=== PATIENT | male | born 1940 | race Caucasian/White ===

== ENCOUNTER 2016-07-26 16:31 | Inpatient (IN) | payer MEDICARE ==
[~2016-07-26] VITALS: Ht 177.8 cm; Wt 91.0 kg
[2016-07-26 16:33] VITALS: O2SAT 95
[2016-07-26 16:34] VITALS: PULSE 71; RESP 18; TEMP 97.7; O2SAT 94
[2016-07-26] MEDS ORDERED: SODIUM CHLOR 0.9% 1000 ML INJ 1,000 ML IV ONE (16:40)
--- NOTE | 2016-07-26 16:40 | PD ---
HPI Chief Complaint: Neuro Symptoms/ Deficits Time Seen by Provider: 16:40 Travel History International Travel<30 days: No Contact w/Intl Traveler<30days: No Traveled to known affect area: No History of Present Illness HPI 76-year-old male was brought to the emergency room by his with history of right upper extremity weakness that started at 3:30 PM. The witnessed the weakness. She is confident about the time of onset. Patient does not have any other weakness except for the right upper extremity. Her past history of stroke. He is awake and answering questions appropriately. They are from [place] and here on vacation. Vital signs were stable otherwise. Blood glucose level bedside was 106. No history of headache or syncopal episodes. No history of trauma. [facility] Past Medical History Narrative Medical List of his past medical, surgical, social and family history was reviewed from the nursing note. Cardiovascular Problems: Yes (PAD, STEN BILAT GROIN, STENT L KIDNEY) Social History Tobacco Use: Yes Allergies-Medications (Allergen,Severity, Reaction): Coded Allergies: Penicillin (Verified Allergy, Unknown, 07/26/16) Comments List of his allergies reviewed from the nursing note. Reported Meds & Prescriptions Reported Meds & Active Scripts Active Reported Fiber Laxative (Calcium Polycarbophil) 625 Mg Tab 1,250 Mg PO DAILY PRN Flax Seed Oil 1000 mg (Flaxseed (Linseed)) 1 Cap Cap 1,000 Mg PO DAILY Zyrtec Allergy (Cetirizine HCl) 10 Mg Tab 10 Mg PO DAILY Multi Vitamin (Multiple Vitamin) 1 Tab Tab 1 Tab PO DAILY Coq-10 (Coenzyme Q10 (Ubidecarenone)) 100 Mg Cap 100 Mg PO DAILY Aspirin DR (Aspirin) 81 Mg Tabdr 81 Mg PO DAILY Tamsulosin (Tamsulosin HCl) 0.4 Mg Cap 0.8 Mg PO DAILY Isosorbide Mononitrate ER (Isosorbide Mononitrate) 60 Mg Tab 60 Mg PO DAILY Plavix (Clopidogrel Bisulfate) 75 Mg Tab 75 Mg PO DAILY Acebutolol (Acebutolol HCl) 400 Mg Cap 400 Mg PO DAILY Narrative Medication List of his home medications reviewed from the nursing note. Review of Systems Except as stated in HPI: all other systems reviewed are Neg Physical Exam Narrative GENERAL: Awake, alert, anxious SKIN: Warm and dry. HEAD: Atraumatic. Normocephalic. EYES: Pupils equal and round. No scleral icterus. No injection or drainage. ENT: No nasal bleeding or discharge. Mucous membranes pink and moist. NECK: Trachea midline. No JVD. CARDIOVASCULAR: Regular rate and rhythm. No murmur appreciated. RESPIRATORY: No accessory muscle use. Clear to auscultation. Breath sounds equal bilaterally. GASTROINTESTINAL: Abdomen soft, non-tender, nondistended. Hepatic and splenic margins not palpable. MUSCULOSKELETAL: No obvious deformities. No clubbing. No cyanosis. No edema. NEUROLOGICAL: Awake and alert. No obvious cranial nerve deficits. Motor grossly within normal limits. Normal speech. NIH stroke score of 5 due to significant right upper extremity flaccid weakness and mild sensory loss in the right upper extremity. PSYCHIATRIC: Appropriate mood and affect; insight and judgment normal. Data Data Last Documented VS Vital Signs Date Time Temp Pulse Resp B/P Pulse Ox O2 Delivery O2 Flow Rate FiO2 07/26/16 16:34 97.7 71 18 94 07/26/16 16:33 Room Air Orders Diet Npo (07/26/16 Dinner) Activity Bed Rest (07/26/16 ) I-Stat Creatinine (07/26/16 16:40) I-Stat Profile (07/26/16 16:40) Prothrombin Time / Inr (Pt) (07/26/16 16:40) Act Partial Throm Time (Ptt) (07/26/16 16:40) Complete Blood Count With Diff (07/26/16 16:40) Fibrinogen (07/26/16 16:40) Creatine Kinase (Cpk) (07/26/16 16:40) Troponin I (07/26/16 16:40) Ua Includes Microscopic (07/26/16 16:40) Drug Screen, Random Urine (07/26/16 16:40) Type And Screen (07/26/16 16:40) Ct Brain W/O Iv Contrast(Rout) (07/26/16 ) Consult Neurology (07/26/16 ) Blood Glucose (07/26/16 16:40) Ecg Monitoring (07/26/16 16:40) Neuro Checks Q2HX12,Q4H (07/26/16 16:40) Nursing Bedside Swallow Assess .ONCE (07/26/16 16:40) Iv Access Insert/Monitor (07/26/16 16:40) NPO (07/26/16 16:40) Oximetry (07/26/16 16:40) Oxygen Administration (07/26/16 16:40) Sodium Chlor 0.9% 1000 Ml Inj (Ns 1000 M (07/26/16 16:40) Resp Oxygen Donell C Titrat 1-4 L (07/26/16 16:40) Cath For Specimen (07/26/16 16:40) ^ Call Pharmacy (07/26/16 16:59) Nih Stroke Scale - Nihss .ONCE (07/26/16 16:59) Urinary Catheter Management RICARDO.Q8H (07/26/16 16:59) Urinary Catheter Insert/Apply (07/26/16 16:59) ^ Anticoagulant Alert (07/26/16 16:59) ^ Post Infusion Restrictions (07/26/16 16:59) ^ Medication Alert (07/26/16 16:59) Vital Signs (Adult) .As directed (07/26/16 16:59) ^ Notify Dr: Blood Pressure (07/26/16 16:59) ^ Medication Alert (07/26/16 16:59) Alteplase Bolus (Activase Bolus) (07/26/16 17:00) Alteplase Drip (Activase Drip) (07/26/16 17:00) Sodium Chloride 0.9% Inj (Ns Inj) (07/26/16 17:00) Misc Nursing Information (07/26/16 17:00) Resp Oxygen Donell C Titrat 1-4 L (07/26/16 ) Ct Brain W/O Iv Contrast(Rout) (07/27/16 ) Mri Brain W/O Contrast (07/26/16 ) Scd Bilateral/Knee High RICARDO.QSHIFT (07/26/16 17:00) Heel Former / Telemetry RICARDO.Q8H (07/26/16 17:00) Westergren Sedimentation Rate (07/26/16 17:00) Vitamin B12 (07/26/16 17:00) Thyroid Stimulating Hormone (07/26/16 17:00) Lipid Profile (07/26/16 17:00) Hemoglobin (Hgb) A1c (07/26/16 17:00) Mra Brain W/O Contrast (Cow) (07/26/16 ) Us Carotid Arteries Comp Bilat (07/26/16 ) Admit Order (Ed Use Only) (07/26/16 17:46) Labs Laboratory Tests Test 07/26/16 07/26/16 16:40 16:55 White Blood Count 7.8 TH/MM3 Red Blood Count 5.14 MIL/MM3 Hemoglobin 16.6 GM/DL Bedside Hemoglobin 16.3 G/DL Hematocrit 48.3 % Bedside Hematocrit 48.0 % Mean Corpuscular Volume 94.1 FL Mean Corpuscular Hemoglobin 32.3 PG Mean Corpuscular Hemoglobin 34.3 % Concent Red Cell Distribution Width 13.7 % Platelet Count 240 TH/MM3 Mean Platelet Volume 7.5 FL Neutrophils (%) (Auto) 49.5 % Lymphocytes (%) (Auto) 34.5 % Monocytes (%) (Auto) 8.5 % Eosinophils (%) (Auto) 6.7 % Basophils (%) (Auto) 0.8 % Neutrophils # (Auto) 3.9 TH/MM3 Lymphocytes # (Auto) 2.7 TH/MM3 Monocytes # (Auto) 0.7 TH/MM3 Eosinophils # (Auto) 0.5 TH/MM3 Basophils # (Auto) 0.1 TH/MM3 CBC Comment DIFF FINAL Differential Comment Erythrocyte Sedimentation Rate 2 mm/hr Prothrombin Time 11.1 SEC Prothromb Time International 1.0 RATIO Ratio Activated Partial 25.2 SEC Thromboplast Time Fibrinogen 237 mg/dL Bedside Sodium 144 MMOL/L Bedside Potassium 4.2 MMOL/L Bedside Chloride 105 MMOL/L Bedside Blood Urea Nitrogen 20 MG/DL Bedside Creatinine 1.5 MG/DL Bedside Glucose 109 MG/DL Total Creatine Kinase 132 U/L Troponin I LESS THAN 0.02 NG/ML Hemoglobin A1c 5.8 % Triglycerides Level 205 MG/DL Cholesterol Level 167 MG/DL LDL Cholesterol 89 MG/DL HDL Cholesterol 37.0 MG/DL Cholesterol/HDL Ratio 4.51 RATIO Vitamin B12 Level 705 PG/ML Thyroid Stimulating Hormone 1.240 uIU/ML 3rd Gen Blood Type A POSITIVE Antibody Screen NEGATIVE Blood Bank Comment [facility] Medical Decision Making Medical Screen Exam Complete: Yes Emergency Medical Condition: Yes Medical Record Reviewed: Yes Differential Diagnosis Embolic CVA, hemorrhagic CVA Narrative Course 6 PM stroke alert was called overhead based on the findings. I spoke with the neurologist Dr. Diaz who after listening to the presentation wanted the patient to give TPA. The radiologist call back after the CAT scan to let me know that it was negative. Patient was reassessed quickly and at this point he was moving his upper extremities slightly more and the NIH stroke score was 3 based on that. I let Dr. Diaz know about this and also the fact that patient is on Plavix. He wanted the TPA to be given still. I spoke with the patient and his and answered all the questions regarding the TPA administration along with the risks and the benefits to the best of my ability. They gave consent for TPA. The order was immediately put in. He was here to assess the patient as well. Patient remained stable during the TPA. 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 Critical Care Narrative Aggregate critical care time was 45 minutes. Time to perform other separately billable procedures was not included in the critical care time. My time did not include minutes spent treating any other patients simultaneously or on activities that did not directly contribute to the patient's treatment. The services I provided to this patient were to treat and/or prevent clinically significant deterioration that could result in: Stroke alert, TPA administration I provided critical care services requiring my management, as noted below: Chart data review, documentation time, medication orders and management, vital sign assessments/reviewing monitor data, ordering and reviewing lab tests, ordering and interpreting/reviewing x-rays and diagnostic studies, care of the patient and discussion of the patient with the admitting physicians. Procedures EKG Prior to Arrival: No Physician Communication Physician Communication Dr. Rani Tellez Diagnosis Primary Impression: Acute CVA (cerebrovascular accident) Admitting Information Admitting Physician Requests: Admit Kristyn Castillo MD Jul 26, 2016 16:40
[2016-07-26] MEDS ORDERED: ACEB400C PO (16:54)
[2016-07-26] MEDS ORDERED: PLAV75TA29 PO (16:54)
[2016-07-26] MEDS ORDERED: TAMS0.4C4 PO (16:54)
[2016-07-26] MEDS ORDERED: ISOS60TA PO (16:54)
[2016-07-26 16:57] LABS: I-STAT POTASSIUM 4.2 MMOL/L (3.5-4.9); I-STAT SODIUM 144 MMOL/L (138-146)
[2016-07-26] MEDS ORDERED: MISCELLANEOUS NURSING INFORMATION XX PRN (17:00)
[2016-07-26] MEDS ORDERED: ALTEPLASE DRIP 78.5 MG in SYRINGE/BAG 1 EA IV ONE (17:00)
[2016-07-26] MEDS ORDERED: ALTEPLASE BOLUS 9 MG/9 ML SYR IV ONE (17:00)
[2016-07-26] MEDS ORDERED: SODIUM CHLORIDE 0.9% 50 ML BAG IVF ONE (17:00)
--- NOTE | 2016-07-26 17:00 | PD.CONS ---
History of Present Illness Service Neurology Consult Requested By er Reason for Consult stroke alert Primary Care Physician History of Present Illness 76 y/o m presents as a stroke alert. sudden rt arm monoplegia. unable to raise arm. onset about an hour prior to arrival. no valle, no trauma. no face/leg involvement. smokes 5 cig/day. no hx of tia/stroke. ct brain no ich. glucose 107. case d/w er md. iv tpa offered. apparently it took some time for pt/spouse to make a decision but medication given in less than an hour. he understands the risk of 6% bleed. he is from [place] and gets his care there. has renal and le stents, for which he takes plavix. 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 follows, no aphasia, follows, eomi, vff, mild reduced rt nlf, rt ue 2/5 with dystaxia, leg 5/5, sensory sym, msr sym, no clonus, planter flexor, nihss 4 Review/Management Diagnosis/Plan: (1) Acute lacunar stroke Plan: pure motor lacunar infarct resulting in rt ue monoplegia localization: left subcortical, left ventral midbrain/lindsay r/o carotid dz risk factors: tob use recs iv tpa given isc admission bp <180/100 stroke w/u no blood thinners tobacco cessation d/w pt scd's (2) HTN (hypertension) (3) Renal insufficiency Plan: has a stent (4) Tobacco consumption Plan: cessation encouraged Problem Qualifiers (1) HTN (hypertension): Qualified Code: I10 - Essential hypertension Chinmay Diaz MD Jul 26, 2016 17:00
[2016-07-26 17:01] LABS: AUTOMATED NEUTROPHIL # 3.9 TH/MM3 (1.8-7.7); BASOPHIL # 0.1 TH/MM3 (0-0.2); BASOPHIL % 0.8 % (0.0-2.0); EOSINOPHIL # 0.5 TH/MM3 (0-0.4); EOSINOPHIL % 6.7 % (0.0-4.0); HEMATOCRIT 48.3 % (39.0-51.0); HEMO FLAGS DIFF FINAL; LYMPH % 34.5 % (9.0-44.0); LYMPHOCYTE # 2.7 TH/MM3 (1.0-4.8); MEAN CELL VOLUME 94.1 FL (80.0-100.0); MEAN CORPUSCULAR HEMOGLOBIN 32.3 PG (27.0-34.0); MEAN CORPUSCULAR HGB CONC 34.3 % (32.0-36.0); MONO % 8.5 % (0.0-8.0); NEUT % 49.5 % (16.0-70.0); PLATELET COUNT 240 TH/MM3 (150-450); RED BLOOD COUNT 5.14 MIL/MM3 (4.50-5.90); RED CELL DISTRIBUTION WIDTH 13.7 % (11.6-17.2); WHITE BLOOD COUNT 7.8 TH/MM3 (4.0-11.0)
[2016-07-26] MEDS ORDERED: FLAX10002 PO (17:03)
[2016-07-26] MEDS ORDERED: ASPI81TA5 PO (17:03)
[2016-07-26] MEDS ORDERED: MULT-135 PO (17:03)
[2016-07-26] MEDS ORDERED: FIBE625T3 PO (17:03)
[2016-07-26] MEDS ORDERED: COQ-100C2 PO (17:03)
[2016-07-26] MEDS ORDERED: ZYRT10TA PO (17:03)
--- NOTE | 2016-07-26 17:03 | RADRPT ---
EXAM DATE/TIME: 07/26/2016 16:43 [facility] COMPARISON: No previous studies available for comparison. INDICATIONS : Right arm weakness. RADIATION DOSE: 46.86 CTDIvol (mGy) This report was called by Dr. Monet to Dr. Castillo at 1655 MEDICAL HISTORY : Unable to obtain SURGICAL HISTORY : unable to obtain ENCOUNTER: Initial ACUITY: 1 day PAIN SCALE: 0/10 LOCATION: cranial TECHNIQUE: Multiple contiguous axial images were obtained of the head. Using automated exposure control and adj ustment of the mA and/or kV according to patient size, radiation dose was kept as low as reasonably a chievable to obtain optimal diagnostic quality images. FINDINGS: CEREBRUM: The ventricles are normal for age. No evidence of midline shift, mass lesion, hemorrhage or acute in farction. No extra-axial fluid collections are seen. POSTERIOR FOSSA: The cerebellum and brainstem are intact. The 4th ventricle is midline. The cerebellopontine angle i s unremarkable. EXTRACRANIAL: The visualized portion of the orbits is intact. Mucoperiosteal thickening in the left ethmoid air tera ls and hypoplastic right maxillary antra. SKULL: The calvaria is intact. No evidence of skull fracture. CONCLUSION: 1. Mild, chronic sinusitis. 2. Otherwise negative. Nelson Castro MD on July 26, 2016 at 16:57 Board Certified Radiologist. This report was verified electronically.
[2016-07-26 17:15] LABS: APTT (PATIENT) 25.2 SEC (24.3-30.1); PROTHROMBIN TIME - PATIENT 11.1 SEC (9.8-11.6)
[2016-07-26 17:23] LABS: CREATINE KINASE 132 U/L (39-308)
--- NOTE | 2016-07-26 17:46 | HHI.HP ---
[facility] Service Critical Care Medicine Primary Care Physician Unknown Admission Diagnosis CVA Diagnosis: (1) Acute lacunar stroke Diagnosis: Principal (2) Renal insufficiency Diagnosis: Principal (3) HTN (hypertension) Diagnosis: Principal (4) Elevated cholesterol with high triglycerides Diagnosis: Principal (5) Peripheral arterial disease Diagnosis: Principal (6) History of squamous cell carcinoma Diagnosis: Principal (7) BPH (benign prostatic hyperplasia) Diagnosis: Principal Chief Complaint: Right arm weakness Travel History International Travel<30 Days: No Contact w/Intl Traveler <30 Da: No Traveled to Known Affected Are: No History of Present Illness 76 year old male. Date of admission 07/26/2016. Past medical history includes hypertension, squamous cell carcinoma, BPH and peripheral arterial disease. He is on aspirin and Plavix. He presented to the [place] ED as a stroke alert with acute onset of right arm weakness approximately one hour to presentation. Started stroke alert was called. Stat CT the brain revealed sinus is otherwise unremarkable. NIH score was 4 for right motor arm weakness. Was evaluated by Dr. Diaz/neurology for his. Right upper extremity motor arm monoplegia. Recommend alteplase indeed received 8.7 mg bolus followed by completion. MRI/MRA brain along with carotid Dopplers pending. Patient's currently lying flat in bed Review of Systems Constitutional: DENIES: Weight gain, Weight loss Endocrine: DENIES: Polydipsia, Polyuria Eyes: DENIES: Blurred vision Ears, nose, mouth, throat: DENIES: Tinnitus Respiratory: DENIES: Apneas Cardiovascular: DENIES: Chest pain Gastrointestinal: DENIES: Abdominal pain Genitourinary: COMPLAINS OF: Urgency, DENIES: Hematuria, Dysuria Musculoskeletal: DENIES: Joint pain, Back pain, Neck pain Integumentary: DENIES: Abnormal pigmentation Hematologic/lymphatic: DENIES: Bruising Immunologic/allergic: DENIES: Eczema Neurologic: COMPLAINS OF: Localized weakness, DENIES: Paresthesias Psychiatric: DENIES: Anxiety, Confusion, Mood changes Past Family Social History Allergies: Coded Allergies: Penicillin (Verified Allergy, Unknown, 07/26/16) Past Medical History Skin cancer Hypertension BPH PAD Past Surgical History Bilateral iliac stents Left renal stent Cataract L5 L6 with X-Stop Reported Medications Acebutolol 400 mg by mouth daily Plavix 75 mg by mouth daily Imdur 60 mg by mouth daily Flomax 0.4 mg by mouth daily Aspirin 81 mg by mouth daily Coenzyme Q 100 mg by mouth daily B12 1 tablet daily Multivitamin 1 tablet daily Active Ordered Medications Reviewed in EMR Family History Sr. with CVA 13 years ago Social History Smokes 4-5 cigarettes "forever". No alcohol use. No IV drug use. Physical Exam Vital Signs Vital Signs Date Time Temp Pulse Resp B/P Pulse Ox O2 Delivery O2 Flow Rate FiO2 07/26/16 16:34 97.7 71 18 94 07/26/16 16:33 95 Room Air 07/26/16 16:33 95 Room Air Physical Exam GENERAL: [age] male, critically ill currently resting in bed in no acute distress SKIN: Warm and dry. HEAD: Atraumatic. Normocephalic. EYES: Pupils equal and round around 3 mm bilaterally and reactive. No scleral icterus. No injection or drainage. ENT: No nasal bleeding or discharge. Mucous membranes pink and moist. NECK: Trachea midline. No JVD. CARDIOVASCULAR: Regular rate and rhythm. S1, S2. No S4. Without murmur RESPIRATORY: Clear to auscultation. Breath sounds equal bilaterally. GASTROINTESTINAL: Abdomen soft, non-tender, nondistended. Hypoactive bowel sounds are appreciated MUSCULOSKELETAL: Extremities without significant peripheral edema. No obvious deformities. NEUROLOGICAL: Awake and alert. No obvious cranial nerve deficits. Motor arm is 4/5. Positive pronator drift. Sensation intact. Remainder motor is 5/5.. No sensation to light touch and pinprick. Normal speech. DTRs equal and symmetric. PSYCHIATRIC: Appropriate mood and affect; insight and judgment normal. Laboratory Laboratory Tests Test 07/26/16 07/26/16 16:40 16:55 White Blood Count 7.8 Red Blood Count 5.14 Hemoglobin 16.6 Bedside Hemoglobin 16.3 Hematocrit 48.3 Bedside Hematocrit 48.0 Mean Corpuscular Volume 94.1 Mean Corpuscular Hemoglobin 32.3 Mean Corpuscular Hemoglobin 34.3 Concent Red Cell Distribution Width 13.7 Platelet Count 240 Mean Platelet Volume 7.5 Neutrophils (%) (Auto) 49.5 Lymphocytes (%) (Auto) 34.5 Monocytes (%) (Auto) 8.5 Eosinophils (%) (Auto) 6.7 Basophils (%) (Auto) 0.8 Neutrophils # (Auto) 3.9 Lymphocytes # (Auto) 2.7 Monocytes # (Auto) 0.7 Eosinophils # (Auto) 0.5 Basophils # (Auto) 0.1 CBC Comment DIFF FINAL Differential Comment Prothrombin Time 11.1 Prothromb Time International 1.0 Ratio Activated Partial 25.2 Thromboplast Time Fibrinogen 237 Bedside Sodium 144 Bedside Potassium 4.2 Bedside Chloride 105 Bedside Blood Urea Nitrogen 20 Bedside Creatinine 1.5 Bedside Glucose 109 Total Creatine Kinase 132 Troponin I LESS THAN 0.02 Triglycerides Level 205 Cholesterol Level 167 Blood Type A POSITIVE Antibody Screen NEGATIVE Blood Bank Comment Result Diagram: 07/26/16 1640 Imaging Last Impressions Head CT 07/26/16 0000 Signed Impressions: Service Date/Time: Tuesday, July 26, 2016 16:43 - CONCLUSION: 1. Mild, chronic sinusitis. 2. Otherwise negative. Nelson Castro MD Assessment and Plan Assessment and Plan Neuro/Psych: Right upper extremity. Motor monoplegia - rule out left midbrain/lindsay/ subcortical lacunar infarct Evaluated by neurology/Dr. Diaz Recommended alteplase currently receiving fusion after initial bolus of 8.7 mg Lay flat had Neuro checks per protocol ICU admission CT head - sinusitis otherwise no acute findings MRI/MRA/carotid Dopplers pending CT head 24 hours post alteplase infusion CV: History of hypertension Elevated triglycerides PAD - history of bilateral iliac stents Holding acebutolol 400 mg by mouth daily and Imdur 60 mill grams by mouth daily for hypertension. Goal keep systolic blood pressure less than 180, diastolic blood pressure less than 105 with when necessary labetalol/hydralazine and Nitropaste 2-D echocardiogram ordered At home on aspirin 81 mg daily, Plavix 75 mill grams for PAD this also has been held Start lipid-lowering agent in a.m. Resp: History of tobaccoism Nasal cannula to maintain saturations greater than equal to 92% Incentive spirometry while awake As needed albuterol therapy every 2 hours Tobacco cessation encouraged. Indication left. GI: Patient is currently nothing by mouth Protonix for GI prophylaxis Colace/as needed Senokot for bowel regimen : BPH Currently holding Flomax 4 mg by mouth daily. Endo: Sliding-scale insulin if indicated to maintain euglycemia/6 hours Check TSH and hemoglobin A1c Renal: Chronic kidney disease stage II to 3 History of left renal stent Monitor urine output closely Currently normal saline 84 cc an hour Accurate I's and O's Heme: CBC within normal limits. ID: Monitor for infection FEN: Replace electrolytes as clinically indicated MSK: PT/OT evaluate and treat Access - Utilize peripheral IV. Central line if indicated Prophylaxis - GI - Protonix - DVT -SCD/holding pharmacological prophylaxis 24 hours after alteplase infusion Critical Care: The total critical care time was 55 minutes. Time to perform other separately billable procedures was not included in the critical care time. Code Status Full code Discussed Condition With Dr. Castillo/ED physician. Patient and . Care plan discussed and all questions answered. Problem Qualifiers (1) HTN (hypertension): Qualified Code: I10 - Essential hypertension (2) BPH (benign prostatic hyperplasia): Qualified Code: N40.0 - Benign prostatic hyperplasia, presence of lower urinary tract symptoms unspecified, unspecified morphology Jim Saravia MD Jul 26, 2016 17:46
[2016-07-26 17:57] VITALS: O2SAT 96
[2016-07-26 18:02] LABS: LDL CHOLESTEROL 89 MG/DL (0-99)
[2016-07-26] MEDS ORDERED: MISCELLANEOUS NURSING INFORMATION XX SCH (18:15)
[2016-07-26] MEDS ORDERED: SODIUM CHLORIDE 0.9% FLUSH 10 ML FLUSH IV FLUSH PRN (18:15)
[2016-07-26] MEDS ORDERED: NITROGLYCERIN 2% OINT 1 GM PACKET TOPICAL PRN (18:15)
[2016-07-26] MEDS ORDERED: CHLORHEXIDINE GLUCONATE 2 % 1 PACK (2 CLOTHS) TOP PRN (18:15)
[2016-07-26] MEDS ORDERED: SENNOSIDES 8.6 MG TAB PO PRN (18:15)
[2016-07-26] MEDS ORDERED: MORPHINE SULFATE 4 MG/ML INJ IV PRN (18:15)
[2016-07-26] MEDS ORDERED: RESP: ALBUTEROL 2.5 MG/3 ML NEB (PRN) INH (18:15)
[2016-07-26] MEDS ORDERED: ONDANSETRON HCL 4 MG/2 ML VIAL IV PRN (18:15)
[2016-07-26] MEDS ORDERED: ACETAMINOPHEN 325 MG TAB PO PRN (18:15)
[2016-07-26] MEDS ORDERED: LABETALOL HCL 100 MG/20 ML VIAL IV PUSH PRN (18:15)
[2016-07-26 18:43] LABS: BACTERIA, URINE RARE /hpf; BLOOD, URINE NEG (NEG); CALCIUM OXALATE CRYSTALS,URINE OCC /hpf; GLUCOSE,URINE NEG (NEG); KETONE, URINE TRACE mg/dL (NEG); MUCUS URINE FEW /lpf (OCC); NITRITE,URINE NEG (NEG); URINE COLOR YELLOW (YELLW/STRAW)
[2016-07-26] MEDS: SODIUM CHLOR 0.9% 1000 ML INJ 1,000 ML IV SCH (18:59)
--- NOTE | 2016-07-26 20:10 | RADRPT ---
EXAM DATE/TIME: 07/26/2016 19:18 [facility] COMPARISON: No previous studies available for comparison. INDICATIONS : Right sided weakness. CVA. MEDICAL HISTORY : Hypertension. SURGICAL HISTORY : Stents, bilat legs and right kidney. ENCOUNTER: Subsequent ACUITY: 1 day PAIN SCORE: 0/10 LOCATION: head. Please note a normal MRA of the brain does not entirely exclude the possibility of a small aneurysm, nor the possibility of distal intracranial vessel disease. TECHNIQUE: 3D time of flight MRA was performed. Source images, multiplanar STS MIP, and 3D volume MIP reconstru ctions were reviewed. FINDINGS: There is excellent visualization of the major intracranial arteries out to the second-order branch ve ssels. There is no evidence for aneurysm, vessel truncation or stenosis, and no evidence for vascula r malformation. CONCLUSION: No acute disease. Carlos Lebron MD on July 26, 2016 at 20:08 Board Certified Radiologist. This report was verified electronically.
--- NOTE | 2016-07-26 20:13 | RADRPT ---
EXAM DATE/TIME: 07/26/2016 19:18 [facility] COMPARISON: No previous studies available for comparison. INDICATIONS : Right-sided weakness. CVA. MEDICAL HISTORY : Hypertension. SURGICAL HISTORY : Stents, bilateral legs and right kidney. ENCOUNTER: Subsequent ACUITY: 1 day PAIN SCORE: 0/10 LOCATION: Head. TECHNIQUE: Multiplanar, multisequence MRI of the brain was performed without contrast. FINDINGS: There is evidence of hyperintensity involving the left occipital and posteroparietal cortex on the di ffusion-weighted images indicating acute infarct in these locations. Mild cerebral atrophy is noted. There is no acute hemorrhage, midline shift or extra-axial fluid collections. Mild mucosal thicken ing is noted involving the right maxillary sinus. Left ethmoid air cell mucosal thickening is also noted. CONCLUSION: 1. Focal signal abnormality involving the left occipital and posteroparietal cortex on the diffusion -weighted images indicating acute infarcts. 2. Mild cerebral atrophy. 3. No acute hemorrhage, midline shift or extra-axial fluid collections. 4. Mild mucosal thickening involving the right maxillary sinus and left ethmoid air cells. Carols Lebron MD on July 26, 2016 at 20:04 Board Certified Radiologist. This report was verified electronically.
[2016-07-26] MEDS: SODIUM CHLORIDE 0.9% FLUSH 10 ML FLUSH IV FLUSH SCH (21:00)
[2016-07-26] MEDS: DOCUSATE SODIUM 100 MG CAP PO SCH (21:00)
[2016-07-26 22:00] VITALS: PULSE 60; PULSE 65
[2016-07-26 22:35] LABS: AMPHETAMINE, URINE NEG (NEG); BARBITURATES, URINE NEG (NEG); COCAINE, URINE NEG (NEG)
--- NOTE | 2016-07-26 22:37 | RADRPT ---
EXAM DATE/TIME: 07/26/2016 21:00 [facility] COMPARISON: No previous studies available for comparison. INDICATIONS : Dissection. MEDICAL HISTORY : Weakness. Peripheral artery disease. SURGICAL HISTORY : Left kidney stent. Bilateral groin stents. ENCOUNTER: Initial ACUITY: 1 day PAIN SCORE: 3/10 LOCATION: Bilateral neck PEAK SYSTOLIC VELOCITIES (cm/sec): ICA/CCA RATIO: Right: 1.7 Left: 1.7 ICA: Right: 115 Left: 116 CCA: Right: 69 Left: 70 ECA: Right: 122 Left: 234 VERTEBRAL: Right: 43 antegrade Left: 70 antegrade Elevated flow velocities and ICA/CCA ratios have been found to correlate with increased degrees of vessel stenosis, calculated as percentage of diameter relative to a normal segment of distal ICA/CCA FINDINGS: RIGHT CAROTID: No significant stenosis is visualized. The waveforms are within normal limits. Calcified atheroscler otic plaque is noted within the distal common carotid, carotid bulb and proximal internal carotid art nicola. LEFT CAROTID: No significant stenosis is visualized. The waveforms are within normal limits. Calcified atheroscler otic plaque is noted within the distal common carotid, carotid bulb and proximal internal carotid art nicola. Probable severe stenosis involving the left external carotid artery. VERTEBRAL ARTERIES: Antegrade flow is seen in both vertebral arteries. MISCELLANEOUS: None. CONCLUSION: No hemodynamically significant stenosis within the internal carotid arteries. Probabl e severe stenosis involving the left external carotid artery (greater than 70%). Carlos Lebron MD on July 26, 2016 at 22:34 Board Certified Radiologist. This report was verified electronically.
[2016-07-26 23:45] VITALS: O2SAT 93
[2016-07-27] VITALS (10 sets, daily range): BP systolic 116–179; BP diastolic 56–85; PULSE 60–74; RESP 15–22; TEMP 98.7–99.1; O2SAT 92–95
[2016-07-27] MEDS: CHLORHEXIDINE GLUCONATE 2 % 1 PACK (2 CLOTHS) TOP SCH (04:00)
[2016-07-27 04:22] LABS: AUTOMATED NEUTROPHIL # 7.5 TH/MM3 (1.8-7.7); BASOPHIL # 0.1 TH/MM3 (0-0.2); BASOPHIL % 0.8 % (0.0-2.0); EOSINOPHIL # 0.6 TH/MM3 (0-0.4); EOSINOPHIL % 4.8 % (0.0-4.0); HEMATOCRIT 45.6 % (39.0-51.0); HEMO FLAGS DIFF FINAL; LYMPH % 24.5 % (9.0-44.0); MEAN CELL VOLUME 94.7 FL (80.0-100.0); MEAN CORPUSCULAR HEMOGLOBIN 31.3 PG (27.0-34.0); MONO % 8.4 % (0.0-8.0); NEUT % 61.5 % (16.0-70.0); PLATELET COUNT 209 TH/MM3 (150-450); RED BLOOD COUNT 4.81 MIL/MM3 (4.50-5.90); RED CELL DISTRIBUTION WIDTH 13.6 % (11.6-17.2); WHITE BLOOD COUNT 12.3 TH/MM3 (4.0-11.0)
[2016-07-27 04:47] LABS: APTT (PATIENT) 26.1 SEC (24.3-30.1); BICARBONATE 25.4 MEQ/L (21.0-32.0); POTASSIUM 3.8 MEQ/L (3.5-5.1)
[2016-07-27] MEDS: hydrALAZINE HCL 20 MG/ML VIAL IV PUSH PRN ×2 (05:45→09:17)
[2016-07-27] MEDS ORDERED: SODIUM CHLORIDE 0.65% NASAL SPRAY 45 ML BTL EACH NARE PRN (07:30)
--- NOTE | 2016-07-27 07:34 | HHI.CCPN ---
Subjective Remarks/Hospital Course 76 year old male. Date of admission 07/26/2016. Past medical history includes hypertension, squamous cell carcinoma, BPH and peripheral arterial disease. He is on aspirin and Plavix. He presented to the [place] ED as a stroke alert with acute onset of right arm weakness approximately one hour to presentation. Started stroke alert was called. Stat CT the brain revealed sinus is otherwise unremarkable. NIH score was 4 for right motor arm weakness. Was evaluated by Dr. Diaz/neurology for his right upper extremity motor arm monoplegia. Recommend alteplase indeed received 8.7 mg bolus followed by completion. MRI/MRA brain along with carotid Dopplers pending. Patient's currently lying flat in bed SUBJECTIVE: 07/27: Afebrile. Patient currently sitting up in bed short of breath. He is normally on CPAP at night but does not tolerate our device/mask. He's also complaining of nasal congestion states "I can't breathe through my nose". MRI revealed left occipital/posterior parietal complex acute lacunar infarct. is bringing his home CPAP right now. Objective Vital Signs Date Time Temp Pulse Resp B/P Pulse Ox O2 Delivery O2 Flow Rate FiO2 07/26/16 23:45 93 4.00 36 07/26/16 22:00 60 07/26/16 20:00 Bi-Pap 07/26/16 16:34 97.7 18 Intake and Output 07/26/16 07/26/16 07/27/16 08:00 16:00 00:00 Intake Total 263 ml Output Total 400 ml Balance -137 ml Result Diagram: 07/27/16 0344 07/27/16 0344 Imaging Last Impressions Head Magnetic Resonance Angiography 07/26/16 0000 Signed Impressions: Service Date/Time: Tuesday, July 26, 2016 19:18 - CONCLUSION: No acute disease. Carlos Lebron MD Head CT 07/26/16 0000 Signed Impressions: Service Date/Time: Tuesday, July 26, 2016 16:43 - CONCLUSION: 1. Mild, chronic sinusitis. 2. Otherwise negative. Nelson Castro MD Carotid Artery Ultrasound 07/26/16 0000 Signed Impressions: Service Date/Time: Tuesday, July 26, 2016 21:00 - CONCLUSION: No hemodynamically significant stenosis within the internal carotid arteries. Probable severe stenosis involving the left external carotid artery (greater than 70%%). Carlos Lebron MD Brain MRI 07/26/16 0000 Signed Impressions: Service Date/Time: Tuesday, July 26, 2016 19:18 - CONCLUSION: 1. Focal signal abnormality involving the left occipital and posteroparietal cortex on the diffusion-weighted images indicating acute infarcts. 2. Mild cerebral atrophy. 3. No acute hemorrhage, midline shift or extra-axial fluid collections. 4. Mild mucosal thickening involving the right maxillary sinus and left ethmoid air cells. Carlos Lebron MD Objective Remarks GENERAL: [age] male, critically ill currently resting in bed with head elevated in mild respiratory distress SKIN: Warm and dry. No rash HEAD: Atraumatic. Normocephalic. EYES: Pupils equal and round around 3 mm bilaterally and reactive. No scleral icterus. No injection or drainage. ENT: No nasal bleeding or discharge. Mucous membranes pink and moist. NECK: Trachea midline. No JVD. CARDIOVASCULAR: Regular rate and rhythm. S1, S2. No S4. Without murmur RESPIRATORY: Clear to auscultation. Breath sounds equal bilaterally. GASTROINTESTINAL: Abdomen soft, non-tender, nondistended. Hypoactive bowel sounds are appreciated MUSCULOSKELETAL: Extremities without significant peripheral edema. No obvious deformities. NEUROLOGICAL: Awake and alert. No obvious cranial nerve deficits. Motor arm is 5/5 bilaterally. Motor leg is 5/5 bilaterally. No sensation to light touch and pinprick. Normal speech. DTRs equal and symmetric. PSYCHIATRIC: Appropriate mood and affect; insight and judgment normal. Urinary Catheter: Yes Assessment to: Continue Hendrix insert reason: Prolonged Immobilization Vascular Central Line Catheter: No Assessment to: Continue A/P Assessment and Plan Neuro/Psych: Acute left occipital/posterior parietal complex lacunar CVA Right upper extremity. Motor monoplegia -/resolved Allergic rhinitis Right Maxillary/left ethmoid sinusitis Evaluated by neurology/Dr. Diaz Recommended alteplase currently receiving fusion after initial bolus of 8.7 mg followed by 78.3 mg over one hour Lay flat had Neuro checks per protocol ICU admission CT head - sinusitis otherwise no acute findings MRI brain revealed left occipital/posterior parietal complex occurring infarct. MRA brain negative. Carotid ultrasound revealed greater than 70% left external carotid stenosis CT head 24 hours post alteplase infusion Given Zyrtec/Flonase and [place] spray nasal spray for rhinitis/sinusitis CV: History of hypertension Elevated triglycerides Low HDL PAD - history of bilateral iliac stents Left external carotid stenosis 70% Holding acebutolol 400 mg by mouth daily and Imdur 60 mill grams by mouth daily for hypertension. Goal keep systolic blood pressure less than 180, diastolic blood pressure less than 105 with when necessary labetalol/hydralazine and Nitropaste 2-D echocardiogram ordered. Results pending At home on aspirin 81 mg daily, Plavix 75 mill grams for PAD this also has been held Start lipid-lowering agent in a.m. Outpatient follow-up for external carotid stenosis Resp: History of tobaccoism FLAVIA Nasal cannula to maintain saturations greater than equal to 92% Incentive spirometry while awake As needed albuterol therapy every 2 hours Tobacco cessation encouraged. Indication left. On CPAP at night external pressure 6 cm H2O. GI: Start on health healthy diet Protonix for GI prophylaxis Colace/as needed Senokot for bowel regimen : BPH Currently holding Flomax 0.4 mg by mouth daily. Resume clinically indicated Endo: Sliding-scale insulin if indicated to maintain euglycemia/6 hours Check TSH and hemoglobin A1c Renal: Chronic kidney disease stage II to 3 History of left renal stent Monitor urine output closely Currently normal saline 70 cc an hour has been discontinued Accurate I's and O's Heme: Leukocytosis - likely stress Status post alteplase 87 milligrams total CBC will be repeated in AM. Monitor trends. No indication for transfusion of blood proximal at this time. ID: Monitor for infection FEN: Replace electrolytes as clinically indicated MSK: PT/OT evaluate and treat Access - Utilize peripheral IV. Central line if indicated Prophylaxis - GI - Protonix - DVT -SCD/holding pharmacological prophylaxis 24 hours after alteplase infusion Critical Care: The total critical care time was 35 minutes. Time to perform other separately billable procedures was not included in the critical care time. Jim Saravia MD Jul 27, 2016 07:34
[2016-07-27] MEDS: SODIUM CHLOR 0.9% 1000 ML INJ 1,000 ML IV SCH ×2 (07:55→16:41)
[2016-07-27] MEDS: PANTOPRAZOLE SODIUM 40 MG VIAL IV SCH (08:14)
[2016-07-27] MEDS: SODIUM CHLORIDE 0.9% FLUSH 10 ML FLUSH IV FLUSH SCH ×2 (08:14→21:00)
[2016-07-27] MEDS: TAMSULOSIN HCL 0.4 MG CAP PO SCH (08:15)
[2016-07-27] MEDS: MULTIVITAMIN TAB PO SCH (08:15)
[2016-07-27] MEDS: DOCUSATE SODIUM 100 MG CAP PO SCH ×2 (08:15→21:00)
[2016-07-27] MEDS: ACETAMINOPHEN/HYDROcodone 325 MG/5 MG TAB PO PRN (08:15)
[2016-07-27] MEDS: CETIRIZINE HCL 10 MG TAB PO SCH (08:15)
[2016-07-27] MEDS ORDERED: FLAXSEED 1000 MG PO SCH (09:00)
[2016-07-27] MEDS ORDERED: POTASSIUM PHOSPHATE INJ 15 MMOL in SODIUM CHLORIDE 0.9% INJ 150 ML IV ONE (09:00)
[2016-07-27] MEDS ORDERED: NON-FORMULARY DRUG (Coenzyme Q10 (Ubidecarenone) (Coq-10) 100 MG) PO SCH (09:00)
[2016-07-27] MEDS: ISOSORBIDE MONONITRATE 60 MG TAB PO SCH (09:16)
[2016-07-27] MEDS: FLUTICASONE PROPIONATE 50 MCG/ACT 16 GM NASAL SPRAY NASAL SCH ×2 (09:16→21:00)
--- NOTE | 2016-07-27 09:22 | HHI.PR ---
Review/Management Diagnosis/Plan: (1) Acute lacunar stroke Plan: pure motor lacunar infarct resulting in rt ue monoplegia s/p iv tpa recovered mri brain tiny left occiptial and tiny high motor strip infarcts. mra brain nml. cartoids with left External carotid stenosis- should not be clinically significant risk factors: tob use recs check mra carotids f/u ct brain 24 hrs post iv tpa bp<180/100 ok for 5th floor [facility] with tele statin p.t. scd's will consider aggrenox tomorrow d/w pt/rn/ccm appreciate ccm (2) HTN (hypertension) (3) Renal insufficiency Plan: has a stent (4) Tobacco consumption Plan: cessation encouraged Subjective Subjective Comments No acute events reported mild vertex valle; no n/v, farzaneh po feels stronger no hx of afib No chest pain No dyspnea Active Medications Current Medications Medications (Trade) Dose Ordered Sig/Daryl Route Start Time Stop Time Status Last Admin Miscellaneous Information No Heparin, Warfarin, Aspir... UNSCH PRN XX 07/26/16 17:00 07/27/16 16:59 (NS 1000 ml Inj) 1,000 ml @ 84 mls/hr [id number] IV 07/26/16 18:07 07/27/16 07:55 (NS Flush) 2 ml UNSCH PRN IV FLUSH 07/26/16 18:15 (NS Flush) 2 ml BID IV FLUSH 07/26/16 21:00 07/27/16 08:14 (Tylenol) 650 mg Q6H PRN PO 07/26/16 18:15 ([place] 5-325 Mg) 1 tab Q4H PRN PO 07/26/16 18:15 07/27/16 08:15 (Morphine Inj) 2 mg Q2H PRN IV 07/26/16 18:15 (Protonix Inj) 40 mg DAILY IV 07/27/16 09:00 07/27/16 08:14 (Zofran Inj) 4 mg Q6H PRN IV 07/26/16 18:15 (Colace) 100 mg BID PO 07/26/16 21:00 07/27/16 08:15 (Senokot) 17.2 mg Q12H PRN PO 07/26/16 18:15 Miscellaneous Information 1 Q361D XX 07/26/16 18:15 (Chlorhexidine 2% Cloth) 3 pack Taper DAILY@04 TOP 07/27/16 04:00 07/23/17 03:59 07/27/16 04:00 (Chlorhexidine 2% Cloth) 3 pack UNSCH PRN TOP 07/26/16 18:15 (Trandate Inj) 10 mg Q1H PRN IV PUSH 07/26/16 18:15 (Apresoline Inj) 10 mg Q1HR PRN IV PUSH 07/26/16 18:15 07/27/16 05:45 (Nitroglycerin 2% Oint) 2 inch Q6H PRN TOPICAL 07/26/16 18:15 (ZyrTEC) 10 mg DAILY PO 07/27/16 09:00 07/27/16 08:15 (Flonase Donell Spr) 1 spray BID NASAL 07/27/16 09:00 Sodium Chloride 2 spray 2 spray Q4H PRN EACH NARE 07/27/16 07:30 (Potassium Phosphate Inj/NS Inj) 155 ml @ 38.75 mls/ hr ONCE ONCE IV 07/27/16 09:00 07/27/16 12:59 07/27/16 08:14 (Sectral) 400 mg DAILY PO 07/27/16 09:00 (Imdur) 60 mg DAILY@07 PO 07/27/16 07:52 (Theragran) 1 tab DAILY PO 07/27/16 09:00 07/27/16 08:15 (Flomax) 0.8 mg DAILY PO 07/27/16 09:00 07/27/16 08:15 Allergies Allergies Coded Allergies Penicillin (Verified Allergy, Unknown, 07/26/16) Review of Systems All other ROS: ROS reviewed as documented in chart Exam I&O / VS 07/26/16 07/26/16 07/27/16 15:00 23:00 07:00 Intake Total 263 ml 620 ml Output Total 400 ml 800 ml Balance -137 ml -180 ml Intake IV Total 263 ml 620 ml Output Urine Total 400 ml 800 ml Vital Signs Date Time Temp Pulse Resp B/P Pulse Ox O2 Delivery O2 Flow Rate FiO2 07/27/16 04:00 98.7 61 15 177/79 92 07/27/16 00:00 98.8 62 16 147/77 93 07/26/16 23:45 93 4.00 36 07/26/16 22:00 60 07/26/16 22:00 65 07/26/16 20:00 95 Bi-Pap 6.00 07/26/16 17:57 96 Nasal Cannula 2.00 07/26/16 16:34 97.7 71 18 94 07/26/16 16:33 95 Room Air 07/26/16 16:33 95 Room Air General: Alert and Oriented, No acute distress Respiratory: Non-labored respirations Cardiology: Normal rate Neurologic: Alert, Oriented Psychiatric: Cooperative, Appropriate mood & affect Exam Comments ox 3. follows, no aphasia, follows, eomi, vff, mild reduced rt nlf, rt ue 5-/5 minimal dystaxia, leg 5/5, sensory sym, msr sym, no clonus, planter flexor, nihss 1 Objective Micro and Labs Laboratory Tests Test 07/26/16 07/26/16 07/26/16 07/26/16 16:40 16:55 18:27 22:46 White Blood Count 7.8 Red Blood Count 5.14 Hemoglobin 16.6 Bedside Hemoglobin 16.3 Hematocrit 48.3 Bedside Hematocrit 48.0 Mean Corpuscular Volume 94.1 Mean Corpuscular Hemoglobin 32.3 Mean Corpuscular Hemoglobin 34.3 Concent Red Cell Distribution Width 13.7 Platelet Count 240 Mean Platelet Volume 7.5 Neutrophils (%) (Auto) 49.5 Lymphocytes (%) (Auto) 34.5 Monocytes (%) (Auto) 8.5 Eosinophils (%) (Auto) 6.7 Basophils (%) (Auto) 0.8 Neutrophils # (Auto) 3.9 Lymphocytes # (Auto) 2.7 Monocytes # (Auto) 0.7 Eosinophils # (Auto) 0.5 Basophils # (Auto) 0.1 CBC Comment DIFF FINAL Differential Comment Erythrocyte Sedimentation Rate 2 Prothrombin Time 11.1 Prothromb Time International 1.0 Ratio Activated Partial 25.2 Thromboplast Time Fibrinogen 237 Bedside Sodium 144 Bedside Potassium 4.2 Bedside Chloride 105 Bedside Blood Urea Nitrogen 20 Bedside Creatinine 1.5 Bedside Glucose 109 Total Creatine Kinase 132 Troponin I LESS THAN 0.02 Triglycerides Level 205 Cholesterol Level 167 LDL Cholesterol 89 HDL Cholesterol 37.0 Cholesterol/HDL Ratio 4.51 Vitamin B12 Level 705 Thyroid Stimulating Hormone 1.240 3rd Gen Blood Type A POSITIVE Antibody Screen NEGATIVE Blood Bank Comment Urine Color YELLOW Urine Turbidity CLEAR Urine pH 6.0 Urine Specific [place] 1.036 Urine Protein 30 Urine Glucose (UA) NEG Urine Ketones TRACE Urine Occult Blood NEG Urine Nitrite NEG Urine Bilirubin NEG Urine Urobilinogen 2.0 Urine Leukocyte Esterase NEG Urine RBC 1 Urine WBC 2 Urine Calcium Oxalate Crystals OCC Urine Bacteria RARE Urine Mucus FEW Urine Opiates Screen NEG Urine Barbiturates Screen NEG Urine Amphetamines Screen NEG Urine Benzodiazepines Screen NEG Urine Cocaine Screen NEG Urine Cannabinoids Screen NEG Nasal Screen MRSA (PCR) NEGATIVE Test 07/27/16 03:44 White Blood Count 12.3 Red Blood Count 4.81 Hemoglobin 15.0 Hematocrit 45.6 Mean Corpuscular Volume 94.7 Mean Corpuscular Hemoglobin 31.3 Mean Corpuscular Hemoglobin 33.0 Concent Red Cell Distribution Width 13.6 Platelet Count 209 Mean Platelet Volume 7.6 Neutrophils (%) (Auto) 61.5 Lymphocytes (%) (Auto) 24.5 Monocytes (%) (Auto) 8.4 Eosinophils (%) (Auto) 4.8 Basophils (%) (Auto) 0.8 Neutrophils # (Auto) 7.5 Lymphocytes # (Auto) 3.0 Monocytes # (Auto) 1.0 Eosinophils # (Auto) 0.6 Basophils # (Auto) 0.1 CBC Comment DIFF FINAL Differential Comment Prothrombin Time 11.0 Prothromb Time International 1.0 Ratio Activated Partial 26.1 Thromboplast Time Sodium Level 145 Potassium Level 3.8 Chloride Level 111 Carbon Dioxide Level 25.4 Anion Gap 9 Blood Urea Nitrogen 19 Creatinine 1.09 Estimat Glomerular Filtration 66 Rate Random Glucose 86 Calcium Level 8.0 Phosphorus Level 2.4 Magnesium Level 2.0 Problem Qualifiers (1) HTN (hypertension): Qualified Code: I10 - Essential hypertension Chinmay Diaz MD Jul 27, 2016 09:22
--- NOTE | 2016-07-27 10:13 | RADRPT ---
EXAM DATE/TIME: 07/27/2016 09:22 [facility] COMPARISON: No previous studies available for comparison. INDICATIONS : Short of breath. MEDICAL HISTORY : Hypertension. SURGICAL HISTORY : None. ENCOUNTER: Initial ACUITY: 1 day PAIN SCORE: Non-responsive. LOCATION: Bilateral chest FINDINGS: A single portable frontal view the chest shows a subtle parenchymal density within the lingula partia lly obscuring the cardiac apex. The remaining lungs are clear. No effusions. Heart is normal in size. Aorta is calcified and mildly tortuous. Bony structures are unremarkable. CONCLUSION: Lingular atelectasis versus developing infiltrate. Wilbert Negrete Jr., MD on July 27, 2016 at 10:10 Board Certified Radiologist. This report was verified electronically.
[2016-07-27] MEDS: ACEBUTOLOL HCL 400 MG PO SCH (10:43)
--- NOTE | 2016-07-27 16:43 | RADRPT ---
EXAM DATE/TIME: 07/27/2016 16:32 [facility] COMPARISON: CT BRAIN W/O CONTRAST, July 26, 2016, 16:43. INDICATIONS : Stroke; Status-post TPA. RADIATION DOSE: 26.75 CTDIvol (mGy) MEDICAL HISTORY : Stroke. Hypertension. SURGICAL HISTORY : None. ENCOUNTER: Initial ACUITY: 1 day PAIN SCALE: 0/10 LOCATION: cranial TECHNIQUE: Multiple contiguous axial images were obtained of the head. Using automated exposure control and adj ustment of the mA and/or kV according to patient size, radiation dose was kept as low as reasonably a chievable to obtain optimal diagnostic quality images. FINDINGS: CEREBRUM: The ventricles are normal for age. No evidence of midline shift, mass lesion, hemorrhage or acute in farction. No extra-axial fluid collections are seen. POSTERIOR FOSSA: The cerebellum and brainstem are intact. The 4th ventricle is midline. The cerebellopontine angle i s unremarkable. EXTRACRANIAL: The visualized portion of the orbits is intact. SKULL: The calvaria is intact. No evidence of skull fracture. CONCLUSION: 1. No evidence of acute intracranial pathology. No masses are identified. Kenny Monet MD on July 27, 2016 at 16:41 Board Certified Radiologist. This report was verified electronically.
[2016-07-27] MEDS ORDERED: GADODIAMIDE PF 287 MG/ML 20 ML VIAL (for RAD MRI) IV ONE (17:07)
--- NOTE | 2016-07-27 17:35 | RADRPT ---
EXAM DATE/TIME: 07/27/2016 16:46 [facility] COMPARISON: No previous studies available for comparison. INDICATIONS : Stroke. CONTRAST: 20 cc Omniscan (gadodiamide) IV MEDICAL HISTORY : Hypertension. Skin cancer. SURGICAL HISTORY : Coronary artery stent. Kidney stent and cataracts. ENCOUNTER: Subsequent ACUITY: 1 day PAIN SCORE: 0/10 LOCATION: Neck. Percent stenosis is calculated using the diameter of the stenotic region over the diameter of the nor mal distal internal carotid artery. TECHNIQUE: Bolus infused MRA of the extracranial circulation was performed using a neurovascular coil. Post pro cessing was performed including rotating subvolume maximum intensity projections of each carotid ricardo ry, rotating full volume maximum intensity projections of both carotid arteries, sagittal and coronal sliding thin slab reformations of each carotid artery, and left oblique sliding thin slab reformatio n through the aortic arch to include the origin of the arch branch vessels. FINDINGS: AORTIC ARCH: There is a three vessel origin of the great vessels from the aorta. No evidence of ostial narrowing. RIGHT CAROTID: The common carotid artery is intact. The carotid bulb has a normal configuration without ulceration or narrowing. The internal carotid artery lumen is smooth without stenosis. The external carotid ar branden is intact. LEFT CAROTID: Ulcerated atherosclerotic plaque involving the proximal ICA generates a 40% stenosis. A high-grade st enosis of the external carotid artery is observed. The common carotid artery and more cephalad portio n of the extracranial internal carotid artery are patent. VERTEBRALS: The left vertebral artery is dominant. No stenotic lesions are seen. CONCLUSION: 1. Ulcerated plaque generates a 40% stenosis of the left ICA origin. Right carotid is patent. 2. Dominant left vertebral artery. Wilbert Negrete Jr., MD on July 27, 2016 at 17:24 Board Certified Radiologist. This report was verified electronically.
[2016-07-27 18:59] LABS: HEMOGLOBIN A1a 1.2 %; HEMOGLOBIN A1b 1.9 %; HEMOGLOBIN Ao 84.6 %; HEMOGLOBIN LA1C 2.1 %
[2016-07-27] MEDS ORDERED: ATORVASTATIN 20 MG TAB PO SCH (21:00)
[2016-07-28] VITALS (8 sets, daily range): BP systolic 125–181; BP diastolic 61–77; PULSE 60–75; RESP 16–20; TEMP 97.8–98.9; O2SAT 92–95
[2016-07-28] MEDS: CHLORHEXIDINE GLUCONATE 2 % 1 PACK (2 CLOTHS) TOP SCH (04:00)
[2016-07-28 04:13] LABS: HEMATOCRIT 44.1 % (39.0-51.0); MEAN CELL VOLUME 93.4 FL (80.0-100.0); MEAN CORPUSCULAR HEMOGLOBIN 32.9 PG (27.0-34.0); MEAN CORPUSCULAR HGB CONC 35.3 % (32.0-36.0); PLATELET COUNT 203 TH/MM3 (150-450); RED BLOOD COUNT 4.73 MIL/MM3 (4.50-5.90); RED CELL DISTRIBUTION WIDTH 13.9 % (11.6-17.2); REVIEW FLAG FINAL; WHITE BLOOD COUNT 10.7 TH/MM3 (4.0-11.0)
[2016-07-28 04:39] LABS: BICARBONATE 25.6 MEQ/L (21.0-32.0)
[2016-07-28] MEDS: SODIUM CHLOR 0.9% 1000 ML INJ 1,000 ML IV SCH (05:52)
[2016-07-28] MEDS: ISOSORBIDE MONONITRATE 60 MG TAB PO SCH (07:25)
[2016-07-28] MEDS: SODIUM CHLORIDE 0.9% FLUSH 10 ML FLUSH IV FLUSH SCH (08:07)
[2016-07-28] MEDS: FLUTICASONE PROPIONATE 50 MCG/ACT 16 GM NASAL SPRAY NASAL SCH (08:07)
[2016-07-28] MEDS: TAMSULOSIN HCL 0.4 MG CAP PO SCH (08:07)
[2016-07-28] MEDS: MULTIVITAMIN TAB PO SCH (08:07)
[2016-07-28] MEDS: CETIRIZINE HCL 10 MG TAB PO SCH (08:07)
[2016-07-28] MEDS: ACEBUTOLOL HCL 400 MG PO SCH (08:07)
[2016-07-28] MEDS: DOCUSATE SODIUM 100 MG CAP PO SCH (08:07)
[2016-07-28] MEDS: PANTOPRAZOLE SODIUM 40 MG VIAL IV SCH (08:07)
[2016-07-28] MEDS: ACETAMINOPHEN/HYDROcodone 325 MG/5 MG TAB PO PRN (08:43)
[2016-07-28] MEDS ORDERED: ACETAMINOPHEN 500 MG CPLT PO SCH (12:15)
[2016-07-28] MEDS ORDERED: DIPYRIDAMOLE/ASPIRIN 200 MG/25 MG CAP PO SCH (12:15)
--- NOTE | 2016-07-28 12:16 | HHI.PR ---
Review/Management Diagnosis/Plan: (1) Acute lacunar stroke Plan: pure motor lacunar infarct resulting in rt ue monoplegia s/p iv tpa recovered mri brain tiny left occiptial and tiny high motor strip infarcts. mra brain nml. 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 automobile tester in [place] to r/o afib and if found change to OAC pretreatment with tylenol prior to giving aggrenox as high incidence of valle; if valle occurs and not responsive to tylenol, will need to change to OAC ok to d/c today and outpatient f/u d/w medical/pt/spouse (2) HTN (hypertension) (3) Renal insufficiency Plan: has a stent (4) Tobacco consumption Plan: cessation encouraged Subjective Subjective Comments No acute events reported No headache No chest pain No dyspnea Active Medications Current Medications Medications (Trade) Dose Ordered Sig/Daryl Route Start Time Stop Time Status Last Admin (NS 1000 ml Inj) 1,000 ml @ 84 mls/hr [id number] IV 07/26/16 18:07 07/28/16 05:52 (NS Flush) 2 ml UNSCH PRN IV FLUSH 07/26/16 18:15 (NS Flush) 2 ml BID IV FLUSH 07/26/16 21:00 07/28/16 08:07 (Tylenol) 650 mg Q6H PRN PO 07/26/16 18:15 07/27/16 15:22 ([place] 5-325 Mg) 1 tab Q4H PRN PO 07/26/16 18:15 07/28/16 08:43 (Morphine Inj) 2 mg Q2H PRN IV 07/26/16 18:15 (Protonix Inj) 40 mg DAILY IV 07/27/16 09:00 07/28/16 08:07 (Zofran Inj) 4 mg Q6H PRN IV 07/26/16 18:15 07/27/16 10:43 (Colace) 100 mg BID PO 07/26/16 21:00 07/28/16 08:07 (Senokot) 17.2 mg Q12H PRN PO 07/26/16 18:15 07/28/16 11:38 Miscellaneous Information 1 Q361D XX 07/26/16 18:15 (Chlorhexidine 2% Cloth) 3 pack Taper DAILY@04 TOP 07/27/16 04:00 07/23/17 03:59 07/28/16 04:00 (Chlorhexidine 2% Cloth) 3 pack UNSCH PRN TOP 07/26/16 18:15 (Trandate Inj) 10 mg Q1H PRN IV PUSH 07/26/16 18:15 (Apresoline Inj) 10 mg Q1HR PRN IV PUSH 07/26/16 18:15 07/27/16 09:17 (Nitroglycerin 2% Oint) 2 inch Q6H PRN TOPICAL 07/26/16 18:15 (ZyrTEC) 10 mg DAILY PO 07/27/16 09:00 07/28/16 08:07 (Flonase Donell Spr) 1 spray BID NASAL 07/27/16 09:00 07/28/16 08:07 ([place] Donell [place]) 2 spray Q4H PRN EACH NARE 07/27/16 07:30 07/27/16 09:16 (Sectral) 400 mg DAILY PO 07/27/16 09:00 07/28/16 08:07 (Imdur) 60 mg DAILY@07 PO 07/27/16 07:52 07/28/16 07:25 (Theragran) 1 tab DAILY PO 07/27/16 09:00 07/28/16 08:07 (Flomax) 0.8 mg DAILY PO 07/27/16 09:00 07/28/16 08:07 (Lipitor) 20 mg HS PO 07/27/16 21:00 07/27/16 21:00 Allergies Allergies Coded Allergies Penicillin (Verified Allergy, Unknown, 07/26/16) Review of Systems All other ROS: ROS reviewed as documented in chart Exam I&O / VS 07/27/16 07/27/16 07/28/16 15:00 23:00 07:00 Intake Total 1327 ml 474 ml 800 ml Output Total 800 ml 275 ml 300 ml Balance 527 ml 199 ml 500 ml Intake Oral 360 ml 250 ml IV Total 967 ml 474 ml 550 ml Output Urine Total 800 ml 275 ml 300 ml # Bowel Movements 0 Vital Signs Date Time Temp Pulse Resp B/P Pulse Ox O2 Delivery O2 Flow Rate FiO2 07/28/16 10:00 63 07/28/16 08:29 94 Nasal Cannula 2.00 07/28/16 08:00 68 07/28/16 08:00 98.3 62 20 181/77 92 07/28/16 07:00 96 Room Air 07/28/16 06:00 73 07/28/16 04:00 68 07/28/16 04:00 98.9 69 16 149/71 95 07/28/16 02:00 71 07/28/16 00:00 68 07/28/16 00:00 98.8 75 16 142/75 95 07/27/16 22:00 74 07/27/16 20:00 61 07/27/16 20:00 99.1 60 16 134/60 95 07/27/16 19:00 95 Bi-Pap 07/27/16 18:00 71 07/27/16 16:22 20 07/27/16 16:00 71 07/27/16 16:00 98.7 71 22 116/56 93 07/27/16 14:00 70 General: Alert and Oriented, No acute distress Respiratory: Non-labored respirations Cardiology: Normal rate Neurologic: Alert, Oriented Psychiatric: Cooperative, Appropriate mood & affect Exam Comments ox 3. follows, no aphasia, follows, eomi, vff, very minimal reduced rt nlf, rt ue 5/5 minimal dystaxia, leg 5/5, sensory sym, msr sym, no clonus, planter flexor, nihss 0 Objective Micro and Labs Laboratory Tests Test 07/28/16 04:00 White Blood Count 10.7 Red Blood Count 4.73 Hemoglobin 15.6 Hematocrit 44.1 Mean Corpuscular Volume 93.4 Mean Corpuscular Hemoglobin 32.9 Mean Corpuscular Hemoglobin 35.3 Concent Red Cell Distribution Width 13.9 Platelet Count 203 Mean Platelet Volume 7.6 Sodium Level 142 Potassium Level 4.0 Chloride Level 109 Carbon Dioxide Level 25.6 Anion Gap 7 Blood Urea Nitrogen 16 Creatinine 1.17 Estimat Glomerular Filtration 61 Rate Random Glucose 104 Calcium Level 8.2 Problem Qualifiers (1) HTN (hypertension): Qualified Code: I10 - Essential hypertension Chinmay Diaz MD Jul 28, 2016 12:16
--- NOTE | 2016-07-28 12:21 | HHI.PR ---
Subjective Remarks sitting on the chair with no distress. overall doing fine and hoping that he could go home today. right sided weakness has much improved. d/w the RN and no acute issues over night. Objective Vitals Vital Signs Date Time Temp Pulse Resp B/P Pulse Ox O2 Delivery O2 Flow Rate FiO2 07/28/16 10:00 63 07/28/16 08:29 94 Nasal Cannula 2.00 07/28/16 08:00 68 07/28/16 08:00 98.3 62 20 181/77 92 07/28/16 07:00 96 Room Air 07/28/16 06:00 73 07/28/16 04:00 68 07/28/16 04:00 98.9 69 16 149/71 95 07/28/16 02:00 71 07/28/16 00:00 68 07/28/16 00:00 98.8 75 16 142/75 95 07/27/16 22:00 74 07/27/16 20:00 61 07/27/16 20:00 99.1 60 16 134/60 95 07/27/16 19:00 95 Bi-Pap 07/27/16 18:00 71 07/27/16 16:22 20 07/27/16 16:00 71 07/27/16 16:00 98.7 71 22 116/56 93 07/27/16 14:00 70 I/O 07/27/16 07/27/16 07/27/16 07/28/16 07/28/16 07/28/16 07:00 15:00 23:00 07:00 15:00 23:00 Intake Total 620 ml 1327 ml 474 ml 800 ml Output Total 800 ml 800 ml 275 ml 300 ml Balance -180 ml 527 ml 199 ml 500 ml Intake Oral 360 ml 250 ml IV Total 620 ml 967 ml 474 ml 550 ml Output Urine Total 800 ml 800 ml 275 ml 300 ml # Bowel Movements 0 Result Diagram: 07/28/160 07/28/160 Imaging Last Impressions Neck Magnetic Resonance Angiography 07/27/16 0000 Signed Impressions: Service Date/Time: June 16:46 - CONCLUSION: 1. Ulcerated plaque generates a 40%% stenosis of the left ICA origin. Right carotid is patent. 2. Dominant left vertebral artery. Wilbert Negrete Jr., MD Head CT 07/27/16 0000 Signed Impressions: Service Date/Time: June 16:32 - CONCLUSION: 1. No evidence of acute intracranial pathology. No masses are identified. Kenny Monet MD Chest X-Ray 07/27/16 0000 Signed Impressions: Service Date/Time: June 09:22 - CONCLUSION: Lingular atelectasis versus developing infiltrate. Wilbert Negrete Jr., MD Head Magnetic Resonance Angiography 07/26/16 0000 Signed Impressions: Service Date/Time: Tuesday, July 26, 2016 19:18 - CONCLUSION: No acute disease. Carlos Lebron MD Carotid Artery Ultrasound 07/26/16 0000 Signed Impressions: Service Date/Time: Tuesday, July 26, 2016 21:00 - CONCLUSION: No hemodynamically significant stenosis within the internal carotid arteries. Probable severe stenosis involving the left external carotid artery (greater than 70%%). Carlos Lebron MD Brain MRI 07/26/16 0000 Signed Impressions: Service Date/Time: Tuesday, July 26, 2016 19:18 - CONCLUSION: 1. Focal signal abnormality involving the left occipital and posteroparietal cortex on the diffusion-weighted images indicating acute infarcts. 2. Mild cerebral atrophy. 3. No acute hemorrhage, midline shift or extra-axial fluid collections. 4. Mild mucosal thickening involving the right maxillary sinus and left ethmoid air cells. Carlos Lebron MD Objective Remarks GENERAL: This is a well-nourished, well-developed patient, in no apparent distress. CARDIOVASCULAR: Regular rate and regular rhythm without murmurs, gallops, or rubs. RESPIRATORY: Clear to auscultation. Breath sounds equal bilaterally. No wheezes , rales, or rhonchi. GASTROINTESTINAL: Abdomen soft, non-tender, nondistended. Normal, active bowel sounds MUSCULOSKELETAL: Extremities without clubbing, cyanosis, or edema. NEURO: Alert & Oriented x4 to person, place, time, situation. Moves all ext x4 Medications and IVs Current Medications Sodium Chloride (NS 1000 ml Inj) 1,000 ml @ 70 mls/hr [id number] ONCE IV Last administered on 07/26/16t 17:30; Start 07/26/16 at 16:40; Stop 07/26/16 at 18:12 ; Status DC Alteplase, Recombinant 8.7 mg 8.7 mg ONCE ONCE IV Last administered on 17:28; Start 07/26/16 at 17:00; Stop 07/26/16 at 17:01; Status DC Alteplase, Recombinant/ Syringe / Bag (Activase Drip/ Syringe/Bag) 78.4999 ml @ 78.5 mls/ hr ONCE ONCE IV Last administered on 07/26/16 17:28; Start at 17:00; Stop 07/26/16 at 17:59; Status DC Sodium Chloride (NS Inj) 30 ml ONCE ONCE IVF Last administered on 07/26/16 18 :29; Start 07/26/16 at 17:00; Stop 07/26/16 at 17:02; Status DC Miscellaneous Information No Heparin, Warfarin, Aspir... UNSCH PRN XX SEE DOSE INSTRUCTIONS; Start 07/26/16 at 17:00; Stop 07/27/16 at 16:59; Status DC Sodium Chloride (NS 1000 ml Inj) 1,000 ml @ 84 mls/hr [id number] IV Last administered on 07/28/16 05:52; Start 07/26/16 at 18:07 Sodium Chloride (NS Flush) 2 ml UNSCH PRN IV FLUSH FLUSH AFTER USING IV ACCESS ; Start 07/26/16 at 18:15 Sodium Chloride (NS Flush) 2 ml BID IV FLUSH Last administered on 07/28/16 08: 07; Start 07/26/16 at 21:00 Acetaminophen (Tylenol) 650 mg Q6H PRN PO PAIN 1-2 AND/OR FEVER >101F Last administered on 07/27/16 15:22; Start 07/26/16 at 18:15 Acetaminophen/ Hydrocodone Bitart ([place] 5-325 Mg) 1 tab Q4H PRN PO PAIN SCALE 3 TO 5 Last administered on 07/28/16 08:43; Start 07/26/16 at 18:15 Morphine Sulfate (Morphine Inj) 2 mg Q2H PRN IV PAIN SCALE 6 TO 10; Start 07/26 at 18:15 Pantoprazole Sodium (Protonix Inj) 40 mg DAILY IV Last administered on 08:07; Start 07/27/16 at 09:00 Ondansetron HCl (Zofran Inj) 4 mg Q6H PRN IV NAUSEA OR VOMITING Last administered on 07/27/16 10:43; Start 07/26/16 at 18:15 Docusate Sodium (Colace) 100 mg BID PO Last administered on 07/28/16 08:07; Start 07/26/16 at 21:00 Sennosides (Senokot) 17.2 mg Q12H PRN PO CONSTIPATION Last administered on 07/28 11:38; Start 07/26/16 at 18:15 Albuterol Sulfate (Albuterol Neb) 2.5 mg Q2HR NEB PRN INH SOB/WHEEZING; Start 07/26/16 at 18:15 Miscellaneous Information 1 [id number] XX ; Start 07/26/16 at 18:15 Chlorhexidine Gluconate (Chlorhexidine 2% Cloth) 3 pack Taper DAILY@04 TOP Last administered on 07/28/16 04:00; Start 07/27/16 at 04:00; Stop 07/23/17 at 03:59 Chlorhexidine Gluconate (Chlorhexidine 2% Cloth) 3 pack UNSCH PRN TOP HYGIENIC CARE; Start 07/26/16 at 18:15 Labetalol HCl (Trandate Inj) 10 mg Q1H PRN IV PUSH SBP>180, DBP>100, HR>65; Start 07/26/16 at 18:15 Hydralazine HCl (Apresoline Inj) 10 mg Q1HR PRN IV PUSH SBP>180, DBP>105 Last administered on 07/27/16 09:17; Start 07/26/16 at 18:15 Nitroglycerin (Nitroglycerin 2% Oint) 2 inch Q6H PRN TOPICAL SBP> OR = 180, DBP > OR = 100; Start 07/26/16 at 18:15 Cetirizine HCl (ZyrTEC) 10 mg DAILY PO Last administered on 07/28/16 08:07; Start 07/27/16 at 09:00 Fluticasone Propionate (Flonase [place]ell Spr) 1 spray BID NASAL Last administered on 07/28/16 08:07; Start 07/27/16 at 09:00 Sodium Chloride 2 spray 2 spray Q4H PRN EACH NARE NASAL CONGESTION Last administered on 07/27/16 09:16; Start 07/27/16 at 07:30 Potassium Phosphate/Sodium Chloride (Potassium Phosphate Inj/NS Inj) 155 ml @ 38.75 mls/ hr ONCE ONCE IV Last administered on 07/27/16 08:14; Start at 09:00; Stop 07/27/16 at 12:59; Status DC Acebutolol HCl (Sectral) 400 mg DAILY PO Last administered on 07/28/16 08:07; Start 07/27/16 at 09:00 Isosorbide Mononitrate (Imdur) 60 mg DAILY@07 PO Last administered on 07:25; Start 07/27/16 at 07:52 Multivitamins (Theragran) 1 tab DAILY PO Last administered on 07/28/16 08:07; Start 07/27/16 at 09:00 Tamsulosin HCl (Flomax) 0.8 mg DAILY PO Last administered on 07/28/16 08:07; Start 07/27/16 at 09:00 Non-Formulary Medication 100 mg DAILY PO ; Start 07/27/16 at 09:00; Stop at 09:00; Status DC Non-Formulary Medication 1,000 mg DAILY PO ; Start 07/27/16 at 09:00; Stop 07/27 at 09:00; Status DC Atorvastatin Calcium (Lipitor) 20 mg HS PO Last administered on 07/27/16 21:00 ; Start 07/27/16 at 21:00 Gadodiamide (Omniscan Pf Inj) 20 ml STK-MED ONCE IV Last administered on 17:07; Start 07/27/16 at 17:07; Stop 07/27/16 at 17:08; Status DC A/P Assessment and Plan A/P Acute left occipital/posterior parietal complex lacunar CVA Right upper extremity. Motor monoplegia -/resolved Allergic rhinitis Right Maxillary/left ethmoid sinusitis Evaluated by neurology/Dr. Diaz s/p alt[place] . CT head - sinusitis otherwise no acute findings MRI brain revealed left occipital/posterior parietal complex occurring infarct. MRA brain negative. Carotid ultrasound revealed greater than 70% left external carotid stenosis repeated CT head with no acute intracranial abnormality. needs event monitoring as outpatient History of hypertension Elevated triglycerides Low HDL PAD - history of bilateral iliac stents Left external carotid stenosis 70% resume home BP meds upon discharge 2-D echocardiogram ordered. Results pending At home on aspirin 81 mg daily, Plavix 75 mill grams for PAD this also has been held will discharge on baby aspirin and Aggrenox per neurology recommendations. started on statin. History of tobaccoism FLAVIA Nasal cannula to maintain saturations greater than equal to 92% Incentive spirometry while awake As needed albuterol therapy every 2 hours Tobacco cessation encouraged. On CPAP at night external pressure 6 cm H2O. BPH Currently holding Flomax 0.4 mg by mouth daily. Resume clinically indicated Chronic kidney disease stage II to 3- stable History of left renal stent leukocytosis - likely stress; resolved. PT/OT consulted. Discharge Planning dc home today. see med list. f/u with pcp and neurology. d/w the patient and his family. d/w the RN. d/w . time spent 31 min. King Stone MD Jul 28, 2016 12:20 Monitor urine output closely Currently normal saline 70 cc an hour has been discontinued Accurate I's and O's Heme: Leukocytosis - likely stress Status post alteplase 87 milligrams total CBC will be repeated in AM. Monitor trends. No indication for transfusion of blood proximal at this time. ID: Monitor for infection FEN: Replace electrolytes as clinically indicated MSK: PT/OT evaluate and treat King Stone MD Jul 28, 2016 12:20
[2016-07-28] MEDS ORDERED: LIPI20TA PO (12:27)
[2016-07-28] MEDS ORDERED: AGGR20025 PO ×2 (12:27→12:34)
--- NOTE | 2016-07-28 12:28 | HHI.DCPOC ---
Discharge Care Plan Diagnosis: (1) Acute CVA (cerebrovascular accident) Your Health Problems Are: Loss of Movements Goals to Promote Your Health * To prevent worsening of your condition and complications * To maintain your health at the optimal level Directions to Meet Your Goals Take your medications as prescribed Follow your dietary instruction Follow activity as directed Keep your appointments as scheduled Take your immunizations and boosters as scheduled If your symptoms worsen call your PCP, if no PCP go to Urgent Care Center or Emergency Room Smoking is Dangerous to Your Health. Avoid second hand smoke Call the 24-hour hour crisis hotline for domestic abuse at King Stone MD Jul 28, 2016 12:28
--- NOTE | 2016-07-28 12:29 | HHI.DS ---
Discharge Summary Admission Date Jul 26, 2016 at 17:48 Discharge Date: Jul 28, 2016 Admitting Diagnosis CVA (1) Acute lacunar stroke ICD Code: I63.9 Diagnosis: Principal (2) Renal insufficiency ICD Code: N28.9 Diagnosis: Principal (3) HTN (hypertension) ICD Code: I10 Diagnosis: Principal (4) Elevated cholesterol with high triglycerides ICD Code: E78.2 Diagnosis: Principal (5) Peripheral arterial disease ICD Code: I73.9 Diagnosis: Principal (6) History of squamous cell carcinoma ICD Code: Z85.89 Diagnosis: Principal (7) BPH (benign prostatic hyperplasia) ICD Code: N40.0 Diagnosis: Principal Procedures Alteplase administration Brief History - From Admission 76 year old male. Date of admission 07/26/2016. Past medical history includes hypertension, squamous cell carcinoma, BPH and peripheral arterial disease. He is on aspirin and Plavix. He presented to the [facility] as a stroke alert with acute onset of right arm weakness approximately one hour to presentation. Started stroke alert was called. Stat CT the brain revealed sinus is otherwise unremarkable. NIH score was 4 for right motor arm weakness. Was evaluated by Dr. Diaz/neurology for his. Right upper extremity motor arm monoplegia. Recommend alteplase indeed received 8.7 mg bolus followed by completion. MRI/MRA brain along with carotid Dopplers pending. Patient's currently lying flat in bed CBC/BMP: 07/28/16 0400 07/28/16 0400 Significant Findings Laboratory Tests Test 07/26/16 07/26/16 07/27/16 07/28/16 16:40 18:27 03:44 04:00 Monocytes (%) (Auto) 8.5 % (0.0-8.0) 8.4 % (0.0-8.0) Eosinophils (%) (Auto) 6.7 % (0.0-4.0) 4.8 % (0.0-4.0) Eosinophils # (Auto) 0.5 TH/MM3 0.6 TH/MM3 (0-0.4) (0-0.4) Bedside Creatinine 1.5 MG/DL (0.8-1.3) Bedside Glucose 109 MG/DL (60-95) Troponin I LESS THAN 0.02 NG/ML (0.02-0.05) Triglycerides Level 205 MG/DL (42-150) HDL Cholesterol 37.0 MG/DL (40.0-60.0) Urine Specific [place] 1.036 (1.002-1.035) Urine Protein 30 mg/dL (NEG-TRACE) Urine Ketones TRACE mg/dL (NEG) Urine Calcium Oxalate Crystals OCC /hpf (NONE) Urine Bacteria RARE /hpf (NONE) Urine Mucus FEW /lpf (OCC) White Blood Count 12.3 TH/MM3 (4.0-11.0) Monocytes # (Auto) 1.0 TH/MM3 (0-0.9) Chloride Level 111 MEQ/L 109 MEQ/L (98-107) (98-107) Blood Urea Nitrogen 19 MG/DL (7-18) Estimat Glomerular Filtration 66 ML/MIN (>89) 61 ML/MIN (>89) Rate Calcium Level 8.0 MG/DL 8.2 MG/DL (8.5-10.1) (8.5-10.1) Phosphorus Level 2.4 MG/DL (2.5-4.9) Imaging Last Impressions Neck Magnetic Resonance Angiography 07/27/16 0000 Signed Impressions: Service Date/Time: June 16:46 - CONCLUSION: 1. Ulcerated plaque generates a 40%% stenosis of the left ICA origin. Right carotid is patent. 2. Dominant left vertebral artery. Wilbert Negrete Jr., MD Head CT 07/27/16 0000 Signed Impressions: Service Date/Time: June 16:32 - CONCLUSION: 1. No evidence of acute intracranial pathology. No masses are identified. Kenny Monet MD Chest X-Ray 07/27/16 0000 Signed Impressions: Service Date/Time: June 09:22 - CONCLUSION: Lingular atelectasis versus developing infiltrate. Wilbert Negrete Jr., MD Head Magnetic Resonance Angiography 07/26/16 0000 Signed Impressions: Service Date/Time: Tuesday, July 26, 2016 19:18 - CONCLUSION: No acute disease. Carlos Lebron MD Carotid Artery Ultrasound 07/26/16 0000 Signed Impressions: Service Date/Time: Tuesday, July 26, 2016 21:00 - CONCLUSION: No hemodynamically significant stenosis within the internal carotid arteries. Probable severe stenosis involving the left external carotid artery (greater than 70%%). Carlos Lebron MD Brain MRI 07/26/16 0000 Signed Impressions: Service Date/Time: Tuesday, July 26, 2016 19:18 - CONCLUSION: 1. Focal signal abnormality involving the left occipital and posteroparietal cortex on the diffusion-weighted images indicating acute infarcts. 2. Mild cerebral atrophy. 3. No acute hemorrhage, midline shift or extra-axial fluid collections. 4. Mild mucosal thickening involving the right maxillary sinus and left ethmoid air cells. Carlos Lebron MD PE at Discharge GENERAL: This is a well-nourished, well-developed patient, in no apparent distress. CARDIOVASCULAR: Regular rate and regular rhythm without murmurs, gallops, or rubs. RESPIRATORY: Clear to auscultation. Breath sounds equal bilaterally. No wheezes , rales, or rhonchi. GASTROINTESTINAL: Abdomen soft, non-tender, nondistended. Normal, active bowel sounds MUSCULOSKELETAL: Extremities without clubbing, cyanosis, or edema. NEURO: Alert & Oriented x4 to person, place, time, situation. Moves all ext x4 Hospital Course Acute left occipital/posterior parietal complex lacunar CVA Right upper extremity. Motor monoplegia -/resolved Allergic rhinitis Right Maxillary/left ethmoid sinusitis Evaluated by neurology/Dr. Diaz s/p alteplase . CT head - sinusitis otherwise no acute findings MRI brain revealed left occipital/posterior parietal complex occurring infarct. MRA brain negative. Carotid ultrasound revealed greater than 70% left external carotid stenosis repeated CT head with no acute intracranial abnormality. needs event monitoring as outpatient. History of hypertension Elevated triglycerides Low HDL PAD - history of bilateral iliac stents Left external carotid stenosis 70% resume home BP meds upon discharge 2-D echocardiogram ordered. Results pending At home on aspirin 81 mg daily, Plavix 75 mill grams for PAD this also has been held will discharge on baby aspirin and Aggrenox per neurology recommendations. started on statin. History of tobaccoism FLAVIA Nasal cannula to maintain saturations greater than equal to 92% Incentive spirometry while awake As needed albuterol therapy every 2 hours Tobacco cessation encouraged. On CPAP at night external pressure 6 cm H2O. BPH Currently holding Flomax 0.4 mg by mouth daily. Resume clinically indicated Chronic kidney disease stage II to 3- stable History of left renal stent leukocytosis - likely stress; resolved. PT/OT consulted. Pt Condition on Discharge: Good Discharge Disposition: Discharge Home Discharge Time: > 30 minutes Discharge Instructions DIET: Follow Instructions for: Heart Healthy Diet Speech Therapy-Diet Recommends: Regular Activities you can perform: Regular-No Restrictions Follow up Referrals: Cardiology Neurology PCP Follow-up New Medications: Atorvastatin (Lipitor) 20 Mg Tab 20 MG PO HS cva Days 30 Ref 0 TAB Dipyridamole-Aspirin (Aggrenox) 200-25 Mg Cap 1 CAP PO BID cva Days 30 Ref 0 CAP Continued Medications: Acebutolol (Acebutolol) 400 Mg Cap 400 MG PO DAILY #30 Ref [address] (Aspirin DR) 81 Mg Tabdr 81 MG PO DAILY Ref 0 TAB Calcium Polycarbophil (Fiber Laxative) 625 Mg Tab 1250 MG PO DAILY PRN CONSTIPATION Ref 0 TAB Cetirizine (Zyrtec Allergy) 10 Mg Tab 10 MG PO DAILY Allergies Ref 0 TAB Coenzyme Q10 (Ubidecarenone) (Coq-10) 100 Mg Cap 100 MG PO DAILY Flaxseed (Linseed) (Flax Seed Oil 1000 mg) 1 Cap Cap 1000 MG PO DAILY Isosorbide Mononitrate ER (Isosorbide Mononitrate ER) 60 Mg Tab 60 MG PO DAILY Prevent Chest Pain #30 Ref 0 TAB Multiple Vitamin (Multi Vitamin) 1 Tab Tab 1 TAB PO DAILY TAB Tamsulosin (Tamsulosin) 0.4 Mg Cap 0.8 MG PO DAILY Manage Prostate Problems #30 Ref 0 CAP Discontinued Medications: Clopidogrel (Plavix) 75 Mg Tab 75 MG PO DAILY Blood Clot Prevention #30 Ref 0 TAB King Stone MD Jul 28, 2016 12:29
[2016-07-28 13:24] LABS: ALT (GPT) 17 U/L (12-78); AST (GOT) 14 U/L (15-37)
--- NOTE | 2016-07-30 21:37 | EKG ---
Date Performed: 07/28/2016 Time Performed: 13:10:16 PTAGE: 76 years EKG: Sinus bradycardia Normal ECG except for rate NO PREVIOUS TRACING DOCTOR: Gaurav Collins Interpretating Date/Time 07/30/2016 21:33:12
== END 2016-07-28 14:14 | disposition home or self-care (01) | DRG 63 ==
LOC: NEPC 16:31 → NEDA 17:48 → N03A 20:05
PROVIDERS: ADMIT Internal Medicine Critical Care Medicine; ATTEND Internal Medicine
DX: I63.9 Cerebral infarction, unspecified (principal); I12.9 Hypertensive chronic kidney disease with stage 1 through stage 4 chronic kidney disease, or unspecified chronic kidney disease; G83.21 Monoplegia of upper limb affecting right dominant side; I73.9 Peripheral vascular disease, unspecified; N40.0 Benign prostatic hyperplasia without lower urinary tract symptoms; R29.704 NIHSS score 4; N18.2 Chronic kidney disease, stage 2 (mild); J30.9 Allergic rhinitis, unspecified; I65.22 Occlusion and stenosis of left carotid artery; F17.210 Nicotine dependence, cigarettes, uncomplicated; J32.2 Chronic ethmoidal sinusitis; J32.0 Chronic maxillary sinusitis; E78.2 Mixed hyperlipidemia; D72.829 Elevated white blood cell count, unspecified; G47.33 Obstructive sleep apnea (adult) (pediatric); Z85.828 Personal history of other malignant neoplasm of skin; Z79.82 Long term (current) use of aspirin; Z88.0 Allergy status to penicillin
CPT/HCPCS: 51702; 70450; 70544; 70548; 70551; 71010; 80048; 80061; 80307; 81001; 82435; 82550; 82565; 82607; 82947; 82948; 83036; 83735; 84100; 84132; 84295; 84443; 84450; 84460; 84484; 84520; 85025; 85027; 85384; 85610; 85652; 85730; 86850; 86900; 86901; 87641; 93005; 93880; 94002; 94150; 96374; A9579; C9113; J0360; J2405; J2997; J7030